=== PATIENT | male | born 1970 | race Caucasian/White ===

== ENCOUNTER 2020-09-09 11:14 | Inpatient (IN) | payer OTHER ==
[2020-09-09 12:14] LABS: BASOPHIL 0.5 % (0-2); EOSINOPHIL 1.2 % (0-5); HCT 46.4 % (42.0-52.0); HGB 15.5 g/dl (13.2-18.0); MCH 31.3 pg (25.0-31.0); MCHC 33.4 g/dL (32.0-36.0); MCV 93.5 fL (78.0-100.0); MONOCYTE 7.4 % (0-12); MPV 10.4 fL (6.0-9.5); NEUTROPHIL 76.5 % (41-80); NRBC 0; PLT 250 K/uL (150-400); RBC 4.96 M/uL (4.70-6.00); RDW 13.2 % (11.5-14.0); WBC 13.2 K/uL (4.0-10.5)
[2020-09-09 12:19] LABS: INR 1.42 (0.9-1.2); PROTHROMBIN TIME 16.5 SECONDS (11.4-13.6); PTT 29.2 SECONDS (22.2-34.7)
[2020-09-09 12:20] LABS: D-DIMER 1.27 ug/mLFEU (0.00-0.41)
[2020-09-09 12:30] LABS: BILIRUBIN 1+ mg/dL (NEGATIVE); BLOOD NEGATIVE Ery/uL (NEGATIVE); CLARITY CLEAR (CLEAR); COLOR YELLOW (YELLOW); GLUCOSE (U) NORMAL (NORMAL); LEUKOCYTES NEGATIVE Leu/uL (NEGATIVE); NITRITE NEGATIVE (NEGATIVE); PROTEIN 2+ mg/dL (NEGATIVE); SPECIFIC GRAVITY >=1.030 (1.001-1.030); UROBILINOGEN 0.2 mg/dL (0.2-1.0)
[2020-09-09 12:39] LABS: BACTERIA TRACE
[2020-09-09 12:39] LABS: ALBUMIN 3.3 g/dL (3.4-5.0); BILIRUBIN - TOTAL 0.6 mg/dL (0.2-1.0); BUN/CREAT RATIO (CALC) 29.3 RATIO; CREATININE 1.16 mg/dL (0.67-1.17); POTASSIUM 4.2 mmol/L (3.5-5.1); TOTAL PROTEIN 6.3 g/dL (6.4-8.2)
[2020-09-09 12:40] LABS: SPERM PRESENT
[2020-09-09 12:41] LABS: LACTIC ACID 1.1 mmol/L (0.4-1.9)
[2020-09-09 12:42] LABS: CKMB 9.8 ng/mL (0.0-3.6)
[2020-09-09 13:10] LABS: AMPHETAMINES POSITIVE (NEGATIVE); BARBITURATES NEGATIVE (NEGATIVE); ECSTASY (MDMA) NEGATIVE (NEGATIVE); MARIJUANA (THC) NEGATIVE (NEGATIVE); METHADONE NEGATIVE (NEGATIVE); OPIATES NEGATIVE (NEGATIVE); OXYCODONE NEGATIVE (NEGATIVE)
[2020-09-10 06:30] LABS: BUN/CREAT RATIO (CALC) 24.6 RATIO; CREATININE 1.34 mg/dL (0.67-1.17); MAGNESIUM 2.1 mg/dL (1.8-2.4); PHOSPHORUS 4.6 mg/dL (2.6-4.7); POTASSIUM 3.6 mmol/L (3.5-5.1)
[2020-09-10 10:30] LABS: BASOPHIL 0.8 % (0-2); EOSINOPHIL 2.4 % (0-5); HCT 48.9 % (42.0-52.0); HGB 16.4 g/dl (13.2-18.0); LYMPHOCYTE 13.4 % (15-48); MCH 31.6 pg (25.0-31.0); MCHC 33.5 g/dL (32.0-36.0); MCV 94.2 fL (78.0-100.0); MONOCYTE 8.3 % (0-12); MPV 10.7 fL (6.0-9.5); NEUTROPHIL 74.8 % (41-80); NRBC 0; PLT 222 K/uL (150-400); RBC 5.19 M/uL (4.70-6.00); RDW 13.2 % (11.5-14.0)
[2020-09-11 06:14] LABS: BUN/CREAT RATIO (CALC) 22.4 RATIO; CREATININE 1.43 mg/dL (0.67-1.17)
--- NOTE | 2020-09-11 13:19 | NUR ---
PT LIVES WITH PARENTS; PLEASE ADVISE OF ANY DISCHARGE NEEDS
[2020-09-12 05:21] LABS: HCT 46.1 % (42.0-52.0); HGB 15.7 g/dl (13.2-18.0); MCH 31.3 pg (25.0-31.0); MCHC 34.1 g/dL (32.0-36.0); MCV 91.8 fL (78.0-100.0); MPV 9.9 fL (6.0-9.5); RBC 5.02 M/uL (4.70-6.00); WBC 11.9 K/uL (4.0-10.5)
[2020-09-12 06:27] LABS: CREATININE 1.25 mg/dL (0.67-1.17)
[2020-09-12] MEDS ORDERED: BUMEX1 MG PO (14:49)
[2020-09-12] MEDS ORDERED: ASPIRIN EC325 MG PO (14:49)
[2020-09-12] MEDS ORDERED: COREG 6.25MG6.25 MG PO (14:49)
[2020-09-12] MEDS ORDERED: PRINIVIL10 MG PO (14:49)
[2020-09-12] MEDS ORDERED: AZITHROMYCIN250 MG PO (14:49)
[2020-09-12] MEDS ORDERED: LIPITOR40 MG PO (14:49)
== END 2020-09-12 19:48 | disposition home or self-care (01) | DRG 280 ==
LOC: FER 11:14 → FTCU 14:53
PROVIDERS: Emergency Medicine; Hospitalist; Internal Medicine Cardiovascular Disease; ADMIT Internal Medicine
DX: I11.0 Hypertensive heart disease with heart failure (principal); I50.21 Acute systolic (congestive) heart failure; I21.A1 Myocardial infarction type 2; Z20.822 Contact with and (suspected) exposure to COVID-19; I42.7 Cardiomyopathy due to drug and external agent; F15.10 Other stimulant abuse, uncomplicated; T43.622A Poisoning by amphetamines, intentional self-harm, initial encounter; Z90.49 Acquired absence of other specified parts of digestive tract; L53.9 Erythematous condition, unspecified; E78.5 Hyperlipidemia, unspecified
CPT/HCPCS: 36415; 36600; 71045; 71046; 71275; 80048; 80053; 80061; 80305; 81001; 82553; 82607; 82803; 83605; 83735; 83880; 84100; 84145; 84443; 84484; 85025; 85379; 85610; 85730; 86140; 93005; J0456; J0696; J1650; J1940; J7050; Q9967; U0002

== ENCOUNTER 2020-10-12 13:17 | Emergency (ER) | payer OTHER ==
[~2020-10-12 13:17] MED LIST: ASPIRIN EC325 MG PO; AZITHROMYCIN250 MG PO; BUMEX1 MG PO; COREG 6.25MG6.25 MG PO; LIPITOR40 MG PO; PRINIVIL10 MG PO
[2020-10-12 13:58] LABS: BASOPHIL 0.4 % (0-2); EOSINOPHIL 0.1 % (0-5); HCT 47.3 % (42.0-52.0); HGB 16.3 g/dl (13.2-18.0); LYMPHOCYTE 11.2 % (15-48); MCH 31.9 pg (25.0-31.0); MCHC 34.5 g/dL (32.0-36.0); MCV 92.6 fL (78.0-100.0); MONOCYTE 6.8 % (0-12); MPV 10.5 fL (6.0-9.5); NEUTROPHIL 81.2 % (41-80); NRBC 0; PLT 198 K/uL (150-400); RBC 5.11 M/uL (4.70-6.00); RDW 13.1 % (11.5-14.0); WBC 14.1 K/uL (4.0-10.5)
[2020-10-12 14:09] LABS: INR 1.77 (0.9-1.2); PROTHROMBIN TIME 19.6 SECONDS (11.4-13.6); PTT 29.3 SECONDS (22.2-34.7)
[2020-10-12 14:29] LABS: ACETAMINOPHEN (TYLENOL) < 2.0 ug/mL (10.0-30.0); ALKALINE PHOSHATASE 76 U/L (46-116); ALT 105 U/L (16-63); AST 82 U/L (15-37); BILIRUBIN - TOTAL 1.5 mg/dL (0.2-1.0); BUN 32 mg/dL (7-18); BUN/CREAT RATIO (CALC) 22.2 RATIO; CHLORIDE 99 mmol/L (98-107); CO2 (BICARBONATE) 27 mmol/L (21-32); CREATININE 1.44 mg/dL (0.67-1.17); GLOBULIN (CALCULATION) 2.5 g/dL; GLUCOSE 115 mg/dL (74-106); TOTAL PROTEIN 6.5 g/dL (6.4-8.2)
== END 2020-10-12 17:08 | disposition other institution (70) ==
LOC: FER 13:17
PROVIDERS: Emergency Medicine
DX: I11.0 Hypertensive heart disease with heart failure (principal); I50.1 Left ventricular failure, unspecified; I48.92 Unspecified atrial flutter; E78.5 Hyperlipidemia, unspecified; I25.2 Old myocardial infarction; Z90.49 Acquired absence of other specified parts of digestive tract; Z79.82 Long term (current) use of aspirin; Z79.899 Other long term (current) drug therapy
CPT/HCPCS: 36415; 36600; 71045; 80053; 82140; 82803; 83605; 83735; 83880; 84484; 85025; 85610; 85730; 87040; 96374; 96375; G0480; J0282; J1170; J1250; J1940; J2060; J7060